=== PATIENT | male | born 1985 | race Caucasian/White ===

== ENCOUNTER → 2016-10-19 | Outpatient (REF) | payer OTHER ==
[2016-10-20 11:46] LABS: ALBUMIN 4.2 GM/DL (3.2-5.2); ALKALINE PHOSPHATASE 62 U/L (45-117); ALT/SGPT 48 U/L (12-78); ANION GAP 6 MEQ/L (8-16); AST/SGOT 18 U/L (15-37); BILIRUBIN,TOTAL 0.5 MG/DL (0.2-1.0); BLOOD UREA NITROGEN 15 MG/DL (7-18); CALCIUM LEVEL 8.6 MG/DL (8.5-10.1); CARBON DIOXIDE LEVEL 28 MEQ/L (21-32); CHLORIDE LEVEL 107 MEQ/L (98-107); CHOLESTEROL LEVEL 245 MG/DL (<200); CREATININE FOR GFR 0.87 MG/DL (0.70-1.30); GLOMERULAR FILTRATION RATE > 60.0 (>60); GLUCOSE, FASTING 81 MG/DL (70-105); SODIUM LEVEL 141 MEQ/L (136-145); TRIGLYCERIDES LEVEL 180 MG/DL (<150)
== END ==
LOC: M SFHCCLAY 15:26
PROVIDERS: ATTEND Family Medicine
DX: E78.5 Hyperlipidemia, unspecified (principal); R07.9 Chest pain, unspecified

== ENCOUNTER → 2016-10-19 | Outpatient (CLI) | payer OTHER ==
--- NOTE | 2016-10-19 17:25 | REP ---
PA and lateral chest: There are no comparisons. The lung andrade are clear. The cardiac size is normal The enrique, mediastinum, and bony thorax are unremarkable. Impression: Negative PA and lateral chest.
== END ==
LOC: M CLY 15:31
PROVIDERS: ATTEND Family Medicine
DX: R07.9 Chest pain, unspecified (principal)

== ENCOUNTER → 2018-09-26 | Outpatient (REF) | payer OTHER ==
[2018-09-27 11:28] LABS: BASO # 0.1 10^3/uL (0.0-0.2); BASO % 1.1 % (0.0-1.0); EOS # 0.2 10^3/uL (0.0-0.50); EOS % 1.9 % (0.0-3.0); HEMATOCRIT 42.7 % (42.0-52.0); HEMOGLOBIN 13.9 g/dl (13.5-17.5); LYMPH # 2.6 10^3/uL (1.5-4.5); LYMPH % 31.4 % (24.0-44.0); MEAN CORPUSCULAR HEMOGLOBIN 28.4 pg (27.0-33.0); MEAN CORPUSCULAR HGB CONC 32.6 g/dl (32.0-36.5); MEAN CORPUSCULAR VOLUME 87.3 fl (80.0-96.0); MONO # 0.6 10^3/uL (0.0-0.8); MONO % 6.7 % (0.0-5.0); NEUTROPHILS # 4.8 10^3/uL (1.8-7.7); NEUTROPHILS % 58.2 % (36.0-66.0); PLATELET COUNT, AUTOMATED 226 10^3/uL (150-450); RED BLOOD COUNT 4.89 10^6/uL (4.30-6.10); WHITE BLOOD COUNT 8.3 10^3/uL (4.0-10.0)
[2018-09-27 12:15] LABS: ALBUMIN 3.8 GM/DL (3.2-5.2); ALT/SGPT 30 U/L (12-78); BILIRUBIN,TOTAL 0.2 MG/DL (0.2-1.0); BLOOD UREA NITROGEN 22 MG/DL (7-18); CALCIUM LEVEL 8.2 MG/DL (8.5-10.1); CARBON DIOXIDE LEVEL 27 MEQ/L (21-32); CHLORIDE LEVEL 110 MEQ/L (98-107); CHOLESTEROL LEVEL 214 MG/DL (<200); CHOLESTEROL RISK RATIO 7.379 (<5); CREATININE FOR GFR 0.97 MG/DL (0.70-1.30); GLOMERULAR FILTRATION RATE > 60.0 (>60); GLUCOSE, FASTING 97 MG/DL (70-100); HDL CHOLESTEROL 29 MG/DL (>40); LDL CHOLESTEROL 135 MG/DL (<100); NON-HDL-C 185 MG/DL; POTASSIUM SERUM 5.1 MEQ/L (3.5-5.1); SODIUM LEVEL 143 MEQ/L (136-145); TOTAL PROTEIN 6.3 GM/DL (6.4-8.2); TRIGLYCERIDES LEVEL 251 MG/DL (<150)
== END ==
LOC: M SFHCCLAY 15:15
PROVIDERS: ATTEND Family Medicine
DX: M89.8X1 Other specified disorders of bone, shoulder (principal); E78.2 Mixed hyperlipidemia

== ENCOUNTER → 2018-09-26 | Outpatient (CLI) | payer OTHER ==
--- NOTE | 2018-09-27 02:47 | REP ---
Clinical: Pain. Technique: AP and axial views of the right clavicle. Findings: Evidence for old healed clavicle fracture. Sternoclavicular and acromioclavicular joints are intact and normal. Surrounding soft tissues are unremarkable. Impression: No acute process identified.
== END ==
LOC: M CLY 15:20
PROVIDERS: ATTEND Family Medicine
DX: M25.511 Pain in right shoulder (principal)

== ENCOUNTER → 2018-12-04 | Outpatient (REF) | payer OTHER ==
[2018-12-05 11:55] LABS: C REACTIVE PROTEIN QUANTITATIV < 0.30 MG/DL (0.00-0.30); RHEUMATOID FACTOR QUANT < 10.0 IU/ML (<15.0)
[2018-12-08 00:08] LABS: ANA (HEP2) Negative (.); CYCLIC CITRULLINATED PEPTIDE 5 units (0-19); Lyme Disease IgG/IgM Antibodie <0.91 ISR (0.00-0.90); Lyme Disease IgM Ab Quantitati <0.80 index (0.00-0.79)
== END ==
LOC: M SFHCCLAY 15:01
PROVIDERS: ATTEND Family Medicine
DX: M25.50 Pain in unspecified joint (principal)

== ENCOUNTER → 2018-12-18 | Outpatient (CLI) | payer OTHER ==
--- NOTE | 2018-12-18 16:01 | REP ---
Clinical: Right shoulder pain. Technique: Internal rotation, external rotation, and Y view of the right shoulder. Findings: Inferior spurring at the acromioclavicular joint is appreciated. The subacromial space is normal. The glenohumeral joint is intact and normal. Surrounding soft tissues are unremarkable. Impression: Moderate inferior spurring at the acromioclavicular joint should be correlated with the patient's symptoms. Otherwise normal right shoulder radiographs.
--- NOTE | 2018-12-18 16:06 | REP ---
Clinical: Trauma. Technique: AP, lateral, bilateral oblique and sunrise views. Findings: The osseous structures and joint spaces are intact and normal. There is no evidence for acute fracture or dislocation. No joint effusion is appreciated. Surrounding soft tissues are unremarkable. No subcutaneous emphysema or radiodense foreign body. Impression: Essentially age-appropriate examination. No acute fracture or dislocation. No significant osteoarthritic degenerative changes are appreciated. If the patient remains symptomatic consider MRI for further investigation.
== END ==
LOC: M CLY 15:22
PROVIDERS: ATTEND Family Medicine
DX: M25.561 Pain in right knee (principal); M25.811 Other specified joint disorders, right shoulder

== ENCOUNTER → 2019-01-01 | Outpatient (CLI) | payer OTHER ==
--- NOTE | 2019-01-01 13:57 | REP ---
MAXILLOFACIAL CT WITHOUT CONTRAST: The frontal sinuses are hypoplastic. Minimal mucosal thickening is present in the maxillary sinuses. The remaining sinuses are clear. The ostiomeatal units are patent. The middle and inferior nasal turbinates are partially paradoxical. There is mild deviation of the nasal septum to the right. A spur is present arising from the right side of the nasal septum. The cribriform plate, medial chang of the orbits and optic canals are intact. The carotid canals form a segment of the posterolateral chang of the sphenoid sinus. IMPRESSION: Sinus mucosal thickening as described above. Electronically Signed by Allan Lizama MD 01/01/2019 02:17 P
== END ==
LOC: M RAD 12:33
PROVIDERS: ATTEND Family Medicine
DX: J32.0 Chronic maxillary sinusitis (principal)

== ENCOUNTER → 2019-05-29 | Outpatient (REF) | payer OTHER ==
[2019-05-29 11:27] LABS: BASO # 0.1 10^3/uL (0.0-0.2); BASO % 0.6 % (0.0-1.0); EOS # 0.2 10^3/uL (0.0-0.5); EOS % 1.7 % (0.0-3.0); HEMATOCRIT 44.4 % (42.0-52.0); HEMOGLOBIN 14.7 g/dl (13.5-17.5); LYMPH # 2.2 10^3/uL (1.5-5.0); LYMPH % 20.3 % (24.0-44.0); MEAN CORPUSCULAR HEMOGLOBIN 29.6 pg (27.0-33.0); MEAN CORPUSCULAR HGB CONC 33.1 g/dl (32.0-36.5); MEAN CORPUSCULAR VOLUME 89.5 fl (80.0-96.0); MONO # 0.8 10^3/uL (0.0-0.8); MONO % 6.9 % (0.0-5.0); NEUTROPHILS # 7.7 10^3/uL (1.5-8.5); NEUTROPHILS % 69.9 % (36.0-66.0); PLATELET COUNT, AUTOMATED 232 10^3/uL (150-450); RED BLOOD COUNT 4.96 10^6/uL (4.30-6.10)
[2019-05-29 11:41] LABS: ALBUMIN 4.1 GM/DL (3.2-5.2); ALT/SGPT 21 U/L (12-78); BILIRUBIN,TOTAL 0.5 MG/DL (0.2-1.0); BLOOD UREA NITROGEN 22 MG/DL (7-18); CALCIUM LEVEL 8.7 MG/DL (8.5-10.1); CARBON DIOXIDE LEVEL 26 MEQ/L (21-32); CHLORIDE LEVEL 108 MEQ/L (98-107); CREATININE FOR GFR 0.79 MG/DL (0.70-1.30); GLOMERULAR FILTRATION RATE > 60.0 (>60); GLUCOSE, FASTING 93 MG/DL (70-100); POTASSIUM SERUM 4.2 MEQ/L (3.5-5.1); SODIUM LEVEL 142 MEQ/L (136-145); THYROXINE (T4) 9.1 UG/DL (4.5-12.0); TOTAL PROTEIN 6.6 GM/DL (6.4-8.2)
== END ==
LOC: M SFHCCLAY 08:32
PROVIDERS: ATTEND Family Medicine
DX: R63.4 Abnormal weight loss (principal); D72.829 Elevated white blood cell count, unspecified

== ENCOUNTER → 2019-06-22 | Outpatient (CLI) | payer OTHER ==
--- NOTE | 2019-06-22 19:19 | REP ---
LUMBOSACRAL SPINE: Five views of the lumbosacral spine are performed. There is no compression fracture. There is normal lumbar lordosis with no spondylolysis or spondylolisthesis. There are bridging osteophytes in the lower thoracic spine. There is a large osteophyte anteriorly at L1 with moderate anterior osteophytosis of L2. Disc spaces are relatively well preserved. There is sclerosis at the facets of L5-S1. Posterior elements are intact. IMPRESSION: Osteophytosis L1 and L2. Sclerotic change at the facets of L5-S1. No fracture or dislocation. Electronically Signed by Amaury Sotelo MD 06/25/2019 11:21 P
== END ==
LOC: M WUC 15:54
PROVIDERS: ATTEND Family Medicine
DX: M54.42 Lumbago with sciatica, left side (principal); M54.41 Lumbago with sciatica, right side

== ENCOUNTER → 2019-06-22 | Outpatient (CLI) | payer OTHER ==
--- NOTE | 2019-06-22 18:33 | REP ---
MRI brain without contrast: History: Generalized headaches. No comparison brain imaging. Comparison CT maxillofacial bones January 01, 2019. Technique: Axial and sagittal imaging planes are utilized for T1 and T2-weighted scans. Sequences include spin-echo, fast spin echo, FLAIR, and diffusion weighted sequences. MRI findings: There is a 2.3 cm mucous retention cyst in the floor the right maxillary sinus. Minimal mucosal thickening is seen in the left maxillary and both ethmoid air cells as mild paranasal sinus mucosal changes. Craniocervical junction and upper cervical cord are normal in appearance. No bony calvarial lesion is seen. No intraorbital abnormality is seen. Deep facial and skull base soft tissues are unremarkable and symmetric. Soteol-white differentiation pattern is normal above below the tentorium. There is no evidence of intracranial mass, infarct, hemorrhage or midline shift. Diffusion weighted scans show no evidence of restricted diffusion. Impression: Mucosal thickening in the ethmoid and left maxillary sinus. Mucous retention cyst in the right maxillary sinus. Otherwise negative MRI brain. Electronically Signed by Choco Fisher MD 06/25/2019 11:23 A
== END ==
LOC: M PLARAD 14:23
PROVIDERS: ATTEND Family Medicine
DX: R51 Headache (principal)

== ENCOUNTER → 2019-10-11 | Outpatient (REF) | payer OTHER ==
[2019-10-11 17:04] LABS: BASO # 0.1 10^3/uL (0.0-0.2); BASO % 0.5 % (0.0-1.0); EOS # 0.1 10^3/uL (0.0-0.5); EOS % 1.2 % (0.0-3.0); HEMATOCRIT 44.5 % (42.0-52.0); HEMOGLOBIN 14.8 g/dl (13.5-17.5); LYMPH # 1.6 10^3/uL (1.5-5.0); LYMPH % 16.5 % (24.0-44.0); MEAN CORPUSCULAR HEMOGLOBIN 29.2 pg (27.0-33.0); MEAN CORPUSCULAR HGB CONC 33.3 g/dl (32.0-36.5); MEAN CORPUSCULAR VOLUME 87.8 fl (80.0-96.0); MONO # 0.6 10^3/uL (0.0-0.8); MONO % 5.7 % (0.0-5.0); NEUTROPHILS # 7.5 10^3/uL (1.5-8.5); NEUTROPHILS % 75.8 % (36.0-66.0); PLATELET COUNT, AUTOMATED 197 10^3/uL (150-450); RED BLOOD COUNT 5.07 10^6/uL (4.30-6.10); WHITE BLOOD COUNT 9.9 10^3/uL (4.0-10.0)
[2019-10-11 17:22] LABS: ALBUMIN 4.3 GM/DL (3.2-5.2); ALT/SGPT 24 U/L (12-78); AMYLASE 46 U/L (25-115); BILIRUBIN,TOTAL 0.3 MG/DL (0.2-1.0); BLOOD UREA NITROGEN 17 MG/DL (7-18); CALCIUM LEVEL 8.6 MG/DL (8.5-10.1); CARBON DIOXIDE LEVEL 28 MEQ/L (21-32); CHLORIDE LEVEL 108 MEQ/L (98-107); CREATININE FOR GFR 0.76 MG/DL (0.70-1.30); GLOMERULAR FILTRATION RATE > 60.0 (>60); GLUCOSE, FASTING 87 MG/DL (70-100); LIPASE 78 U/L (73-393); MAGNESIUM LEVEL 2.2 MG/DL (1.8-2.4); POTASSIUM SERUM 3.9 MEQ/L (3.5-5.1); SODIUM LEVEL 141 MEQ/L (136-145)
[2019-10-11 17:30] LABS: HEMOGLOBIN A1c 5.5 %
[2019-10-14 00:06] LABS: H PYLORI SERUM QUANT IGA <9.0 units (0.0-8.9); H PYLORI SERUM QUANT IGM <9.0 units (0.0-8.9); H PYLORI SERUM QUANT IgG ABY 0.17 (0.00-0.79)
== END ==
LOC: M SFHCCLAY 10:08
PROVIDERS: ATTEND Family Medicine
DX: D72.829 Elevated white blood cell count, unspecified (principal); R73.9 Hyperglycemia, unspecified; R10.13 Epigastric pain

== ENCOUNTER → 2021-03-16 | Outpatient (REF) | payer OTHER ==
[2021-03-16 17:30] LABS: CLOSTRIDIUM DIFFICILE PCR NEGATIVE (NEGATIVE)
== END ==
LOC: M LAB REF 16:12
PROVIDERS: ATTEND Internal Medicine Gastroenterology
DX: K58.0 Irritable bowel syndrome with diarrhea (principal)

== ENCOUNTER → 2022-06-03 | Outpatient (CLI) | payer OTHER | LOC: M SOG 08:11 | PROVIDERS: ATTEND Orthopaedic Surgery | DX: M51.37 Other intervertebral disc degeneration, lumbosacral region (principal) ==

== ENCOUNTER → 2022-10-14 | Outpatient (REF) | payer OTHER ==
[2022-10-14 11:44] LABS: BASO # 0.1 10^3/uL (0.0-0.2); BASO % 0.5 % (0.0-1.0); EOS # 0.2 10^3/uL (0.0-0.5); EOS % 1.6 % (0.0-3.0); HEMATOCRIT 47.3 % (42.0-52.0); HEMOGLOBIN 15.5 g/dl (13.5-17.5); LYMPH # 2.5 10^3/uL (1.5-5.0); LYMPH % 27.3 % (24.0-44.0); MEAN CORPUSCULAR HEMOGLOBIN 29.2 pg (27.0-33.0); MEAN CORPUSCULAR HGB CONC 32.8 g/dl (32.0-36.5); MEAN CORPUSCULAR VOLUME 89.1 fl (80.0-96.0); MONO # 0.7 10^3/uL (0.0-0.8); MONO % 7.1 % (2.0-8.0); NEUTROPHILS # 5.7 10^3/uL (1.5-8.5); NEUTROPHILS % 63.2 % (36.0-66.0); PLATELET COUNT, AUTOMATED 207 10^3/uL (150-450); RED BLOOD COUNT 5.31 10^6/uL (4.30-6.10); WHITE BLOOD COUNT 9.1 10^3/uL (4.0-10.0)
[2022-10-14 11:48] LABS: BILIRUBIN,DIRECT 0.1 MG/DL (<0.4)
[2022-10-14 11:49] LABS: IRON (FE) 54 UG/DL (65-175); PERCENT SATURATION 17.8 % (19.7-50.0); TOTAL IRON BINDING CAPACITY 303 UG/DL (250-425)
[2022-10-14 12:04] LABS: ALBUMIN 4.1 G/DL (3.2-5.2); ALKALINE PHOSPHATASE 82 U/L (46-116); ALT/SGPT 30 U/L (7.0-40); AST/SGOT 18 U/L (<34); BILIRUBIN,TOTAL 0.4 MG/DL (0.3-1.2); BLOOD UREA NITROGEN 25 MG/DL (9-23); CREATININE FOR GFR 0.84 MG/DL (0.70-1.30); FERRITIN 66.9 NG/ML (10.5-307.3); FREE T4 1.19 NG/DL (0.89-1.76); GLOMERULAR FILTRATION RATE > 60.0 (>60); GLUCOSE, FASTING 95 MG/DL (60-100); THYROID STIMULATING HORMONE 2.523 uIU/ML (0.55-4.78); TOTAL PROTEIN 6.9 G/DL (5.7-8.2)
[2022-10-14 12:11] LABS: HEMOGLOBIN A1c 4.9 % (4.0-6.0)
[2022-10-20 13:08] LABS: IGASUB2 123.9 mg/dL (73.2-301.2); IGASUB3 68.5 mg/dL (13.4-97.9); IgA SERUM (part of Subclasses) 167 mg/dL (90-386); TISSUE TRANSGLUTAMINASE IgA <2 U/mL (0-3); UNITSIGA FOR GLIADIN IGA 3 units (0-19); UNITSIGG FOR GLIADIN IGG 16 units (0-19)
== END ==
LOC: M LABDRAWC 11:19
PROVIDERS: ATTEND Internal Medicine Gastroenterology
DX: R11.2 Nausea with vomiting, unspecified (principal); K58.0 Irritable bowel syndrome with diarrhea

== ENCOUNTER → 2022-12-01 | Outpatient (CLI) | payer OTHER ==
[~2022-12-01] MED LIST: ASPI81CH33 PO; BACL1TAB9 PO; FLON1SPR; GNPTAB35 PO; OMEP40CA4 PO; VITA-243 PO; VITA100093 PO
== END ==
LOC: M LABSMTC 09:39
PROVIDERS: ATTEND Anesthesiology
DX: Z01.818 Encounter for other preprocedural examination (principal); Z11.52 Encounter for screening for COVID-19

== ENCOUNTER 2022-12-06 07:42 | Day surgery (SDC) | payer OTHER ==
[~2022-12-06] VITALS: Ht 177.8 cm; Wt 92.1 kg
[~2022-12-06 07:42] MED LIST changes: +LIDOCAINE 2% 100MG/5ML SDV (FOR ANES.) As Ordered ONE; +NS 1,000 ML IV ONE; +propofoL 500 MG/50 ML VIAL As Ordered ONE
[2022-12-06] MEDS ORDERED: propofoL 500 MG/50 ML VIAL As Ordered ONE (09:13)
[2022-12-06 09:41] VITALS: BP 122/56
== END 2022-12-06 09:43 | disposition home or self-care (01) ==
LOC: M OPP 07:42
PROVIDERS: ATTEND Internal Medicine Gastroenterology
DX: K63.5 Polyp of colon (principal); K52.9 Noninfective gastroenteritis and colitis, unspecified; K57.30 Diverticulosis of large intestine without perforation or abscess without bleeding; K64.4 Residual hemorrhoidal skin tags; K64.8 Other hemorrhoids; K62.89 Other specified diseases of anus and rectum; K21.9 Gastro-esophageal reflux disease without esophagitis; F17.200 Nicotine dependence, unspecified, uncomplicated; Z79.51 Long term (current) use of inhaled steroids; Z79.82 Long term (current) use of aspirin; Z79.891 Long term (current) use of opiate analgesic; Z79.899 Other long term (current) drug therapy

== ENCOUNTER → 2023-02-11 | Outpatient (CLI) | payer OTHER ==
[~2023-02-11] MED LIST changes: -LIDOCAINE 2% 100MG/5ML SDV (FOR ANES.) As Ordered ONE; -NS 1,000 ML IV ONE; -propofoL 500 MG/50 ML VIAL As Ordered ONE
== END ==
LOC: M RAD 09:07
PROVIDERS: ATTEND Internal Medicine Gastroenterology
DX: R11.2 Nausea with vomiting, unspecified (principal)

== ENCOUNTER → 2024-01-17 | Outpatient (REF) | payer OTHER ==
[2024-01-17 11:46] LABS: HEMATOCRIT 45.1 % (42.0-52.0); MEAN CORPUSCULAR HEMOGLOBIN 29.8 pg (27.0-33.0); MEAN CORPUSCULAR HGB CONC 33.3 g/dl (32.0-36.5); MEAN CORPUSCULAR VOLUME 89.7 fl (80.0-96.0); PLATELET COUNT, AUTOMATED 233 10^3/uL (150-450); RED BLOOD COUNT 5.03 10^6/uL (4.30-6.10)
[2024-01-17 12:25] LABS: ALKALINE PHOSPHATASE 73 U/L (46-116); ALT/SGPT 20 U/L (7.0-40); AST/SGOT 12 U/L (<34); BILIRUBIN,TOTAL 0.6 MG/DL (0.3-1.2); BLOOD UREA NITROGEN 19 MG/DL (9-23); CALCIUM LEVEL 9.2 MG/DL (8.5-10.1); CARBON DIOXIDE LEVEL 29 MMOL/L (20-31); CHLORIDE LEVEL 106 MMOL/L (98-107); CREATININE FOR GFR 0.76 MG/DL (0.70-1.30); GLOMERULAR FILTRATION RATE > 60.0 (>60); GLUCOSE, FASTING 99 MG/DL (60-100); POTASSIUM SERUM 4.4 MMOL/L (3.5-5.1); SODIUM LEVEL 141 MMOL/L (136-145); THYROID STIMULATING HORMONE 1.611 uIU/ML (0.55-4.78); TOTAL PROTEIN 6.7 G/DL (5.7-8.2)
== END ==
LOC: M SFHCCLAY 08:05
PROVIDERS: ATTEND Family Medicine
DX: R00.2 Palpitations (principal); R73.9 Hyperglycemia, unspecified

== ENCOUNTER → 2024-03-01 | Outpatient (REF) | payer OTHER ==
[2024-03-01 19:11] LABS: BASO # 0.1 10^3/uL (0.0-0.2); BASO % 0.5 % (0.0-1.0); EOS % 0.2 % (0.0-3.0); HEMATOCRIT 47.4 % (42.0-52.0); LYMPH # 2.7 10^3/uL (1.5-5.0); LYMPH % 22.2 % (24.0-44.0); MEAN CORPUSCULAR HEMOGLOBIN 29.4 pg (27.0-33.0); MEAN CORPUSCULAR HGB CONC 33.8 g/dl (32.0-36.5); MEAN CORPUSCULAR VOLUME 87.1 fl (80.0-96.0); MONO # 1.4 10^3/uL (0.0-0.8); MONO % 11.1 % (2.0-8.0); NEUTROPHILS % 65.6 % (36.0-66.0); PLATELET COUNT, AUTOMATED 239 10^3/uL (150-450); RED BLOOD COUNT 5.44 10^6/uL (4.30-6.10); WHITE BLOOD COUNT 12.3 10^3/uL (4.0-10.0)
[2024-03-01 19:22] LABS: LIPASE 26 U/L (12-53)
[2024-03-01 19:24] LABS: AMYLASE 37 U/L (30-118)
[2024-03-01 19:25] LABS: ALBUMIN 4.2 G/DL (3.2-5.2); ALKALINE PHOSPHATASE 82 U/L (46-116); ALT/SGPT 29 U/L (7.0-40); AST/SGOT 32 U/L (<34); BILIRUBIN,TOTAL 0.9 MG/DL (0.3-1.2); BLOOD UREA NITROGEN 17 MG/DL (9-23); CALCIUM LEVEL 9.2 MG/DL (8.5-10.1); CARBON DIOXIDE LEVEL 32 MMOL/L (20-31); CHLORIDE LEVEL 101 MMOL/L (98-107); GLOMERULAR FILTRATION RATE > 60.0 (>60); GLUCOSE, FASTING 79 MG/DL (60-100); POTASSIUM SERUM 3.8 MMOL/L (3.5-5.1); SODIUM LEVEL 140 MMOL/L (136-145); TOTAL PROTEIN 6.6 G/DL (5.7-8.2)
== END ==
LOC: M SFHCCLAY 14:50
PROVIDERS: ATTEND Family Medicine
DX: K52.9 Noninfective gastroenteritis and colitis, unspecified (principal)